=== PATIENT | female | born 1965 | race Caucasian/White ===

== ENCOUNTER 2017-11-27 14:56 | Emergency (ER) | payer MEDICAID ==
[~2017-11-27] VITALS: Ht 157.5 cm; Wt 99.0 kg
[~2017-11-27 14:56] MED LIST: ATEN25TA PO; LOSA1TAB36 PO; SIMV20TA5 PO
[2017-11-27 15:55] LABS: BASOPHILS % (AUTO) 0.4 % (0-1); EOSINOPHILS # (AUTO) 0.1 X10'3 (0-0.9); EOSINOPHILS % (AUTO) 1.5 % (0-6); HEMATOCRIT 40.1 % (35.0-45.0); HEMOGLOBIN 14.3 g/dl (12.0-16.0); LYMPHOCYTES % (AUTO) 15.7 % (21-51); MEAN CORPUSCULAR HEMOGLOBIN 35.5 PG (27.0-31.0); MEAN CORPUSCULAR HGB CONC 35.6 % (33.0-36.5); MEAN CORPUSCULAR VOLUME 99.8 FL (78-98); MEAN PLATELET VOLUME 8.9 FL (7.4-10.4); MONOCYTES # (AUTO) 0.3 X10'3 (0-0.9); MONOCYTES % (AUTO) 5.4 % (2-12); NEUTROPHILS # (AUTO) 4.8 X10'3 (1.8-7.7); PLATELET COUNT 128 X10'3 (140-440); RED BLOOD COUNT 4.02 X10'6 (4.20-5.60); RED CELL DISTRIBUTION WIDTH 13.8 % (11.5-14.5); WHITE BLOOD COUNT 6.3 X10'3 (4.5-11.0)
[2017-11-27 16:06] LABS: INR 1.1 INR; PARTIAL THROMBOPLASTIN TIME 28 SECONDS (22-32); PROTHROMBIN TIME 11.8 SECONDS (9.0-12.0)
[2017-11-27 16:16] LABS: ALANINE AMINOTRANSFERASE 213 U/L (12-78); ALBUMIN 3.4 G/DL (3.4-5.0); ALBUMIN/GLOBULIN RATIO 0.8 (1.1-1.5); ANION GAP 10 (8-16); ASPARTATE AMINO TRANSFERASE 141 U/L (10-37); BILIRUBIN,TOTAL 0.5 MG/DL (0.1-1.0); BLOOD UREA NITROGEN 15 MG/DL (7-18); BUN/CREATININE RATIO 21.7 (6.6-38.0); CALCIUM 9.2 MG/DL (8.5-10.1); CHLORIDE 105 MMOL/L (99-107); CREATININE 0.69 MG/DL (0.40-0.90); GLUCOSE 127 MG/DL (70-104); POTASSIUM 3.9 MMOL/L (3.5-5.1); SODIUM 142 MMOL/L (135-145); TOTAL CARBON DIOXIDE 27.2 MMOL/L (24-32); TOTAL PROTEIN 7.7 G/DL (6.4-8.2); eGFR 90 ML/MIN
[2017-11-27 17:08] LABS: ALKALINE PHOSPHATASE 127 IU/L (46-116)
[2017-11-27 19:56] VITALS: BP 143/78
== END 2017-11-27 20:03 | disposition home or self-care (01) ==
LOC: ER 14:56
DX: R60.0 Localized edema (principal); R11.0 Nausea; K21.9 Gastro-esophageal reflux disease without esophagitis; E78.00 Pure hypercholesterolemia, unspecified; I10 Essential (primary) hypertension; Z87.891 Personal history of nicotine dependence; Z79.899 Other long term (current) drug therapy
CPT/HCPCS: 36415; 71045; 80053; 83605; 83880; 84484; 85025; 85610; 85730; 87040; 93005; 93971; 99285

== ENCOUNTER 2021-05-24 08:43 | Day surgery (SDC) | payer MEDICAID ==
[2021-05-16 15:40] LABS: BASOPHILS % (AUTO) 0.5 % (0-1); EOSINOPHILS # (AUTO) 0.1 X10'3 (0-0.9); EOSINOPHILS % (AUTO) 1.4 % (0-6); LYMPHOCYTES # (AUTO) 0.8 X10'3 (1.1-4.8); LYMPHOCYTES % (AUTO) 22.3 % (21-51); MEAN CORPUSCULAR HEMOGLOBIN 34.1 PG (27.0-31.0); MEAN CORPUSCULAR HGB CONC 33.9 g/dL (33.0-36.5); MEAN CORPUSCULAR VOLUME 100.6 FL (78-98); MEAN PLATELET VOLUME 9.6 FL (7.4-10.4); MONOCYTES # (AUTO) 0.4 X10'3 (0-0.9); NEUTROPHILS # (AUTO) 2.4 X10'3 (1.8-7.7); NEUTROPHILS % (AUTO) 63.8 % (42-75); PRE OP HEMATOCRIT 43.4 % (35.0-45.0); PRE OP HEMOGLOBIN 14.7 g/dL (12.0-16.0); RED BLOOD COUNT 4.31 X10'6 (4.20-5.60); RED CELL DISTRIBUTION WIDTH 15.4 % (11.5-14.5)
[2021-05-16 15:48] LABS: ALBUMIN 3.2 G/DL (3.4-5.0); ALBUMIN/GLOBULIN RATIO 0.7 (1.1-1.5); ALKALINE PHOSPHATASE 173 IU/L (46-116); BLOOD UREA NITROGEN 5 MG/DL (7-18); BUN/CREATININE RATIO 6.8 (6.6-38.0); CALCIUM 8.9 MG/DL (8.5-10.1); CHLORIDE 107 MMOL/L (99-107); CREATININE 0.73 MG/DL (0.40-0.90); PRE OP ALT 48 U/L (30-65); PRE OP ANION GAP 6 (8-16); PRE OP AST 50 U/L (10-37); PRE OP BILIRUB, TOTAL 0.8 MG/DL (0.0-1.0); PRE OP GLUCOSE 99 MG/DL (70-104); PRE OP POTASSIUM 3.7 MMOL/L (3.4-5.1); PRE OP SODIUM 142 MMOL/L (135-145); TOTAL CARBON DIOXIDE 28.6 MMOL/L (24-32); TOTAL PROTEIN 7.7 G/DL (6.4-8.2); eGFR 83 ML/MIN
[2021-05-16 16:03] LABS: PRE OP PLATELET COUNT 77 X10'3 (140-440)
[~2021-05-24] VITALS: Ht 160 cm; Wt 79.4 kg
[~2021-05-24 08:43] MED LIST changes: -ATEN25TA PO; +BUDE10.27 PO; +DOCUMENT DATE & TIME OF BETA-BLOCKER PO ONE; +ENAL-79 PO; +FLUT16SP26; +HYDR12.55 PO; -LOSA1TAB36 PO; +METO-384 PO; +MONT10TA32 PO; +OMEP-50 PO; -SIMV20TA5 PO; +[UNRECOGNIZED DRUG - MIXTURE] PO; +cefazolin/dext.iso 2gm/100ml IV ONE; +famotidine 20mg tablet PO ONE; +meperidine/PF 25mg/ml syringe IV PRN; +morphine 2 MG/ML inj. syringe IV PRN; +morphine 4 MG/ML inj SYRINge IV PRN; +ondansetron/PF 4mg/2ml inj IV PRN; +proCHLORperazine 10 MG/2 ml inj IV PRN; +ringers solution, lacted 1,000 ML IV SCH; +vancomycin 1,500 MG in NS 300ml IV soln IV ONE
[2021-05-24 09:10] VITALS: BP 126/76
[2021-05-24] MEDS ORDERED: LIDOcaine 1% 30ml preserv. free vial ONE (09:29)
[2021-05-24] MEDS ORDERED: fentaNYL/PF 50MCG/1 ML 2ML syringe ONE (10:15)
[2021-05-24] MEDS ORDERED: MIDAZolam 1 MG/ML 5ML VIAL ONE (10:15)
[2021-05-24] MEDS ORDERED: ketorolac trometh. 30mg/ml inj. ONE (10:16)
[2021-05-24] MEDS ORDERED: BUPIVAcaine/PF 2.5mg/ml (0.25%) 10ml vial ONE (10:27)
[2021-05-24] MEDS ORDERED: methylPREDNISolone sod succ 125mg/2ml vial ONE (10:27)
[2021-05-24] MEDS ORDERED: diphenhydrAMINE 50 mg/ml inj ONE (10:58)
[2021-05-24 11:23] VITALS: BP 149/96
--- NOTE | 2021-05-24 11:23 | NUR ---
Received from OR via [facility] IN STABLE CONDITION , accompanied by Anesthesiologist and [employer]NER report given by CASINO FLOOR RUNNER AND Anesthesiolgist. Addendum: 05/24/21 at 1208 by Marianne Padilla RN Amended: Links added.
[2021-05-24 11:30] VITALS: BP 149/96
[2021-05-24 11:40] VITALS: BP 148/77
[2021-05-24 11:50] VITALS: BP 141/63
[2021-05-24 12:00] VITALS: BP 137/68
--- NOTE | 2021-05-24 12:13 | NUR ---
PATIENT DISCHARGED HOME FROM PACU IN STABLE CONDITION AFTER WRITTEN AND VERBAL DISCHARGE INSRUCTIONS GIVEN. PATIENT GAVE VERBAL UNDERSTANDING OF INSTRUCTIONS GIVEN. PATIENT LEFT FACILITY IN WHEELCHAIR WITH RN. Addendum: 05/24/21 at 1320 by Marianne Padilla RN Amended: Links added.
== END 2021-05-24 12:13 | disposition home or self-care (01) ==
LOC: PAS 08:43
PROVIDERS: ATTEND Orthopaedic Surgery
DX: G56.01 Carpal tunnel syndrome, right upper limb (principal); G56.21 Lesion of ulnar nerve, right upper limb; I10 Essential (primary) hypertension; K21.9 Gastro-esophageal reflux disease without esophagitis; G43.909 Migraine, unspecified, not intractable, without status migrainosus; J44.9 Chronic obstructive pulmonary disease, unspecified; E11.9 Type 2 diabetes mellitus without complications; E66.8 Other obesity; Z68.31 Body mass index [BMI] 31.0-31.9, adult; Z72.89 Other problems related to lifestyle; Z20.822 Contact with and (suspected) exposure to COVID-19; Z79.899 Other long term (current) drug therapy; Z88.1 Allergy status to other antibiotic agents; Z87.891 Personal history of nicotine dependence; Z98.890 Other specified postprocedural states
CPT/HCPCS: 36415; 64719; 64721; 80053; 82948; 85025; 93005; J1200; J1885; J2001; J2250; J2930; J3010; J3370; J3490; J7040; U0003; U0005; Z7506; Z7512; A4215; A4565; A6455; A7000; J7120

== ENCOUNTER 2021-09-06 12:00 | Outpatient (CLI) | payer MEDICAID ==
[2021-08-29 12:11] LABS: BASOPHILS % (AUTO) 0.7 % (0-1); EOSINOPHILS % (AUTO) 1.1 % (0-6); LYMPHOCYTES # (AUTO) 0.5 X10'3 (1.1-4.8); LYMPHOCYTES % (AUTO) 16.2 % (21-51); MEAN CORPUSCULAR HEMOGLOBIN 33.7 PG (27.0-31.0); MEAN CORPUSCULAR HGB CONC 34.2 g/dL (33.0-36.5); MEAN CORPUSCULAR VOLUME 98.6 FL (78-98); MEAN PLATELET VOLUME 9.2 FL (7.4-10.4); MONOCYTES # (AUTO) 0.3 X10'3 (0-0.9); MONOCYTES % (AUTO) 9.4 % (2-12); NEUTROPHILS # (AUTO) 2.2 X10'3 (1.8-7.7); NEUTROPHILS % (AUTO) 72.6 % (42-75); PRE OP HEMATOCRIT 42.4 % (35.0-45.0); PRE OP HEMOGLOBIN 14.5 g/dL (12.0-16.0); RED CELL DISTRIBUTION WIDTH 15.4 % (11.5-14.5)
[2021-08-29 12:22] LABS: PRE OP PLATELET COUNT 55 X10'3 (140-440)
[2021-08-29 12:27] LABS: ALBUMIN 3.2 G/DL (3.4-5.0); ALBUMIN/GLOBULIN RATIO 0.7 (1.1-1.5); ALKALINE PHOSPHATASE 192 IU/L (46-116); BLOOD UREA NITROGEN 12 MG/DL (7-18); CHLORIDE 102 MMOL/L (99-107); CREATININE 0.63 MG/DL (0.40-0.90); PRE OP ALT 52 U/L (30-65); PRE OP ANION GAP 9 (8-16); PRE OP AST 74 U/L (10-37); PRE OP GLUCOSE 123 MG/DL (70-104); PRE OP SODIUM 138 MMOL/L (135-145); TOTAL PROTEIN 7.7 G/DL (6.4-8.2); eGFR > 90 ML/MIN
[2021-08-29 12:32] LABS: PRE OP BILIRUB, TOTAL 3.5 MG/DL (0.0-1.0); PRE OP POTASSIUM 3.2 MMOL/L (3.4-5.1)
[2021-08-29 13:40] LABS: PLATELET ESTIMATE DECREASED; TOTAL CELLS COUNTED 100
[~2021-09-06 12:00] MED LIST changes: -DOCUMENT DATE & TIME OF BETA-BLOCKER PO ONE; +MONT-40 PO; -MONT10TA32 PO; -cefazolin/dext.iso 2gm/100ml IV ONE; -famotidine 20mg tablet PO ONE; -meperidine/PF 25mg/ml syringe IV PRN; -morphine 2 MG/ML inj. syringe IV PRN; -morphine 4 MG/ML inj SYRINge IV PRN; -ondansetron/PF 4mg/2ml inj IV PRN; -proCHLORperazine 10 MG/2 ml inj IV PRN; -ringers solution, lacted 1,000 ML IV SCH; -vancomycin 1,500 MG in NS 300ml IV soln IV ONE
== END 2021-09-06 23:59 | disposition home or self-care (01) ==
LOC: LAB 12:00
PROVIDERS: ATTEND Orthopaedic Surgery
DX: Z01.812 Encounter for preprocedural laboratory examination (principal); J45.909 Unspecified asthma, uncomplicated; K21.9 Gastro-esophageal reflux disease without esophagitis; I10 Essential (primary) hypertension; E66.8 Other obesity; G56.03 Carpal tunnel syndrome, bilateral upper limbs; Z20.822 Contact with and (suspected) exposure to COVID-19
CPT/HCPCS: 36415; 80053; 85007; 85025; U0003; U0005

== ENCOUNTER 2023-02-07 06:37 | Day surgery (SDC) | payer MEDICAID ==
[2023-02-07] VITALS (10 sets, daily range): BP systolic 111–146; BP diastolic 43–88
[~2023-02-07] VITALS: Ht 160 cm; Wt 89.4 kg
[~2023-02-07 06:37] MED LIST changes: -OMEP-50 PO; +OMEP20CA16 PO
[2023-02-07] MEDS ORDERED: LIDOcaine 1%/PF 5ML 10 MG/ML VIAL SQ ONE (07:05)
[2023-02-07] MEDS ORDERED: SPIR25TA5 PO (07:17)
[2023-02-07] MEDS ORDERED: BUDE10.22 INH (07:17)
[2023-02-07] MEDS ORDERED: SERT50TA PO (07:17)
[2023-02-07] MEDS ORDERED: MUPI22OI30 TOP (07:17)
[2023-02-07] MEDS ORDERED: clindamycin PO (07:17)
[2023-02-07] MEDS: albumin 25% 100mL bottle x 1 IV PRN ×2 (08:22→09:17)
== END 2023-02-07 10:45 | disposition home or self-care (01) ==
LOC: SSTAY O 06:37
PROVIDERS: ATTEND Radiology Vascular & Interventional Radiology
DX: K70.31 Alcoholic cirrhosis of liver with ascites (principal); I10 Essential (primary) hypertension; E11.9 Type 2 diabetes mellitus without complications; E78.5 Hyperlipidemia, unspecified; Z87.891 Personal history of nicotine dependence; Z88.1 Allergy status to other antibiotic agents; F10.21 Alcohol dependence, in remission; Z79.899 Other long term (current) drug therapy; Z86.14 Personal history of Methicillin resistant Staphylococcus aureus infection
CPT/HCPCS: 49083; C1729; J3490; P9047; A6258; A6449

== ENCOUNTER 2023-02-24 07:13 | Day surgery (SDC) | payer MEDICAID ==
[~2023-02-24] VITALS: Ht 160 cm; Wt 78.6 kg
[2023-02-24] VITALS (8 sets, daily range): BP systolic 108–121; BP diastolic 62–78
[~2023-02-24 07:13] MED LIST changes: +BUDE10.22 INH; -BUDE10.27 PO; -ENAL-79 PO; -METO-384 PO; -MONT-40 PO; +MUPI22OI30 TOP; +SERT50TA PO; +SPIR25TA5 PO; -[UNRECOGNIZED DRUG - MIXTURE] PO
[2023-02-24] MEDS: albumin 25% 100mL bottle x 1 IV PRN ×2 (08:57→09:34)
== END 2023-02-24 10:15 | disposition home or self-care (01) ==
LOC: SSTAY O 07:13
PROVIDERS: ATTEND Radiology Vascular & Interventional Radiology
DX: K70.31 Alcoholic cirrhosis of liver with ascites (principal); I10 Essential (primary) hypertension; E78.5 Hyperlipidemia, unspecified; E11.9 Type 2 diabetes mellitus without complications; Z86.14 Personal history of Methicillin resistant Staphylococcus aureus infection; F10.91 Alcohol use, unspecified, in remission; Z87.891 Personal history of nicotine dependence; Z88.1 Allergy status to other antibiotic agents; Z79.899 Other long term (current) drug therapy
CPT/HCPCS: 49083; C1729; J3490; P9047; A6258; A6449

== ENCOUNTER 2023-03-04 07:36 | Day surgery (SDC) | payer MEDICAID ==
[~2023-03-04] VITALS: Ht 160 cm; Wt 76.3 kg
[2023-03-04] MEDS ORDERED: ketoconazole cream (07:53)
[2023-03-04 08:52] VITALS: BP 97/60
[2023-03-04 09:07] VITALS: BP 127/85
[2023-03-04] MEDS: albumin 25% 100mL bottle x 1 IV PRN ×2 (09:14→09:22)
[2023-03-04 09:22] VITALS: BP 123/68
[2023-03-04 09:37] VITALS: BP 108/59
[2023-03-04 09:52] VITALS: BP 115/66
[2023-03-04 10:07] VITALS: BP 105/63
== END 2023-03-04 11:35 | disposition home or self-care (01) ==
LOC: SSTAY O 07:36
PROVIDERS: ATTEND Radiology Vascular & Interventional Radiology
DX: K70.31 Alcoholic cirrhosis of liver with ascites (principal); I10 Essential (primary) hypertension; E78.5 Hyperlipidemia, unspecified; E11.9 Type 2 diabetes mellitus without complications; Z86.14 Personal history of Methicillin resistant Staphylococcus aureus infection; Z87.891 Personal history of nicotine dependence; F10.91 Alcohol use, unspecified, in remission; Z88.1 Allergy status to other antibiotic agents; Z79.899 Other long term (current) drug therapy
CPT/HCPCS: 49083; C1729; J3490; P9047; A6258; A6449

== ENCOUNTER 2023-03-20 07:09 | Day surgery (SDC) | payer MEDICAID ==
[~2023-03-20] VITALS: Ht 160 cm; Wt 75.9 kg
[~2023-03-20 07:09] MED LIST changes: -MUPI22OI30 TOP; -SERT50TA PO
[2023-03-20 07:22] VITALS: BP 122/79; PULSE 97; TEMP 98.8; O2SAT 99
[2023-03-20] MEDS ORDERED: albumin 25% 100mL bottle x 1 IV PRN (07:25)
[2023-03-20 08:45] VITALS: BP 119/59; PULSE 77; RESP 16; O2SAT 98
[2023-03-20 09:00] VITALS: BP 123/80; PULSE 87; RESP 12; O2SAT 98
[2023-03-20 09:15] VITALS: BP 102/64; PULSE 77; RESP 12; O2SAT 98
[2023-03-20 09:30] VITALS: BP 98/48; PULSE 79; RESP 14; O2SAT 98
[2023-03-20 09:45] VITALS: BP 109/41; PULSE 87; RESP 12; O2SAT 97
== END 2023-03-20 09:50 | disposition home or self-care (01) ==
LOC: SSTAY O 07:09
PROVIDERS: ATTEND Radiology Vascular & Interventional Radiology
DX: K70.31 Alcoholic cirrhosis of liver with ascites (principal); I10 Essential (primary) hypertension; E78.5 Hyperlipidemia, unspecified; E11.9 Type 2 diabetes mellitus without complications; Z86.14 Personal history of Methicillin resistant Staphylococcus aureus infection; F10.91 Alcohol use, unspecified, in remission; F17.210 Nicotine dependence, cigarettes, uncomplicated; Z88.1 Allergy status to other antibiotic agents; Z79.899 Other long term (current) drug therapy
CPT/HCPCS: 49083; C1729; J3490; P9047; A6258

== ENCOUNTER 2023-03-27 07:45 | Day surgery (SDC) | payer MEDICAID ==
[~2023-03-27] VITALS: Ht 160 cm; Wt 76.6 kg
[2023-03-27] MEDS ORDERED: albumin 25% 100mL bottle x 1 IV PRN (08:05)
[2023-03-27 08:10] VITALS: BP 127/91; PULSE 99; RESP 16; TEMP 98.2; O2SAT 98
[2023-03-27 09:10] VITALS: BP 142/91; PULSE 93; RESP 16; O2SAT 100
[2023-03-27] MEDS ORDERED: SULF1TAB49 PO (09:17)
[2023-03-27 09:25] VITALS: BP 118/78; PULSE 86; RESP 15; O2SAT 100
[2023-03-27 09:35] VITALS: BP 130/78; PULSE 91; RESP 14; O2SAT 100
[2023-03-27 09:50] VITALS: BP 131/51; PULSE 86; RESP 16; O2SAT 99
== END 2023-03-27 10:10 | disposition home or self-care (01) ==
LOC: SSTAY O 07:45
PROVIDERS: ATTEND Radiology Vascular & Interventional Radiology
DX: K70.31 Alcoholic cirrhosis of liver with ascites (principal); I10 Essential (primary) hypertension; E78.5 Hyperlipidemia, unspecified; E11.9 Type 2 diabetes mellitus without complications; F10.21 Alcohol dependence, in remission; Z88.1 Allergy status to other antibiotic agents; Z98.890 Other specified postprocedural states; Z86.14 Personal history of Methicillin resistant Staphylococcus aureus infection; Z79.899 Other long term (current) drug therapy
CPT/HCPCS: 49083; C1729; J3490; A6258; A6449

== ENCOUNTER 2023-04-03 07:09 | Day surgery (SDC) | payer MEDICAID ==
[~2023-04-03] VITALS: Ht 160 cm; Wt 85.9 kg
[2023-04-03] VITALS (7 sets, daily range): BP systolic 119–141; BP diastolic 78–94; PULSE 95–99; RESP 14–16; TEMP 98.6; O2SAT 99
[~2023-04-03 07:09] MED LIST changes: +SULF1TAB49 PO
[2023-04-03] MEDS ORDERED: LIDOcaine 1% 30ml preserv. free vial SQ STA (07:24)
[2023-04-03] MEDS ORDERED: albumin 25% 100mL bottle x 1 IV PRN (07:45)
== END 2023-04-03 11:00 | disposition home or self-care (01) ==
LOC: SSTAY O 07:09
PROVIDERS: ATTEND Radiology Diagnostic Radiology
DX: K70.31 Alcoholic cirrhosis of liver with ascites (principal); I10 Essential (primary) hypertension; E78.5 Hyperlipidemia, unspecified; E11.9 Type 2 diabetes mellitus without complications; F10.91 Alcohol use, unspecified, in remission; Z87.891 Personal history of nicotine dependence; Z86.14 Personal history of Methicillin resistant Staphylococcus aureus infection; Z79.899 Other long term (current) drug therapy
CPT/HCPCS: 49083; C1729; J3490; A6258; A6449

== ENCOUNTER 2023-04-17 06:32 | Day surgery (SDC) | payer MEDICAID ==
[~2023-04-17] VITALS: Ht 160 cm; Wt 86.3 kg
[2023-04-17] VITALS (7 sets, daily range): BP systolic 107–156; BP diastolic 61–115; PULSE 79–96; RESP 14–16; TEMP 99.3; O2SAT 94–100
[~2023-04-17 06:32] MED LIST changes: +BACI1PAC7 TP; -BUDE10.22 INH; -SULF1TAB49 PO
[2023-04-17] MEDS: albumin 25% 100mL bottle x 1 IV PRN ×2 (07:56→08:59)
== END 2023-04-17 10:00 | disposition home or self-care (01) ==
LOC: SSTAY O 06:32
PROVIDERS: ATTEND Radiology Vascular & Interventional Radiology
DX: K70.31 Alcoholic cirrhosis of liver with ascites (principal); E11.9 Type 2 diabetes mellitus without complications; E78.5 Hyperlipidemia, unspecified; I10 Essential (primary) hypertension; Z86.14 Personal history of Methicillin resistant Staphylococcus aureus infection; F10.21 Alcohol dependence, in remission; Z98.890 Other specified postprocedural states; Z87.891 Personal history of nicotine dependence; Z88.1 Allergy status to other antibiotic agents; Z79.899 Other long term (current) drug therapy
CPT/HCPCS: 49083; C1729; J3490; P9047; A6258

== ENCOUNTER 2023-04-24 06:21 | Day surgery (SDC) | payer MEDICAID ==
[2023-04-24] VITALS (11 sets, daily range): BP systolic 100–121; BP diastolic 60–93; PULSE 80–103; RESP 16; TEMP 98.2; O2SAT 95–100
[~2023-04-24] VITALS: Ht 160 cm; Wt 83.7 kg
[~2023-04-24 06:21] MED LIST changes: -BACI1PAC7 TP
[2023-04-24] MEDS: albumin 25% 100mL bottle x 1 IV PRN ×2 (08:38→08:40)
== END 2023-04-24 10:40 | disposition home or self-care (01) ==
LOC: SSTAY O 06:21
PROVIDERS: ATTEND Radiology Diagnostic Radiology
DX: K70.31 Alcoholic cirrhosis of liver with ascites (principal); I10 Essential (primary) hypertension; E78.5 Hyperlipidemia, unspecified; E11.9 Type 2 diabetes mellitus without complications; F10.21 Alcohol dependence, in remission; Z86.14 Personal history of Methicillin resistant Staphylococcus aureus infection; Z87.891 Personal history of nicotine dependence; Z98.890 Other specified postprocedural states; Z79.899 Other long term (current) drug therapy; Z88.1 Allergy status to other antibiotic agents
CPT/HCPCS: 49083; C1729; J3490; P9047; A6258

== ENCOUNTER 2023-05-01 06:34 | Day surgery (SDC) | payer MEDICAID ==
[~2023-05-01] VITALS: Ht 160 cm; Wt 79.7 kg
[2023-05-01] VITALS (8 sets, daily range): BP systolic 96–121; BP diastolic 56–74; PULSE 81–90; RESP 14–17; O2SAT 95–99
[2023-05-01] MEDS: albumin 25% 100mL bottle x 1 IV PRN ×2 (09:17→09:58)
== END 2023-05-01 10:45 | disposition home or self-care (01) ==
LOC: SSTAY O 06:34
PROVIDERS: ATTEND Radiology Vascular & Interventional Radiology
DX: K70.31 Alcoholic cirrhosis of liver with ascites (principal); I10 Essential (primary) hypertension; E78.5 Hyperlipidemia, unspecified; E11.9 Type 2 diabetes mellitus without complications; Z86.14 Personal history of Methicillin resistant Staphylococcus aureus infection; F10.21 Alcohol dependence, in remission; Z87.891 Personal history of nicotine dependence; Z88.1 Allergy status to other antibiotic agents; Z79.899 Other long term (current) drug therapy
CPT/HCPCS: 49083; C1729; J3490; P9047; A6258; A6449

== ENCOUNTER 2023-05-08 06:45 | Day surgery (SDC) | payer MEDICAID ==
[~2023-05-08] VITALS: Ht 160 cm; Wt 77.5 kg
[2023-05-08 07:01] VITALS: BP 104/65; PULSE 89; RESP 14; TEMP 98.4; O2SAT 100
[2023-05-08] MEDS ORDERED: normal saline 1000ml 1,000 ML IV PRN (07:05)
[2023-05-08] MEDS ORDERED: albumin 25% 100mL bottle x 1 IV PRN (07:05)
[2023-05-08 08:08] VITALS: RESP 14; O2SAT 96
[2023-05-08 08:23] VITALS: BP 113/65; PULSE 83; RESP 16; O2SAT 96
[2023-05-08 08:38] VITALS: BP 105/63; PULSE 79; RESP 16; O2SAT 96
[2023-05-08 08:53] VITALS: BP 104/64; PULSE 76; RESP 16; O2SAT 96
[2023-05-08 09:05] VITALS: BP 110/66; PULSE 78; RESP 16; O2SAT 96
== END 2023-05-08 09:05 | disposition home or self-care (01) ==
LOC: SSTAY O 06:45
PROVIDERS: ATTEND Radiology Vascular & Interventional Radiology
DX: K70.31 Alcoholic cirrhosis of liver with ascites (principal); I10 Essential (primary) hypertension; E11.9 Type 2 diabetes mellitus without complications; E78.5 Hyperlipidemia, unspecified; Z86.14 Personal history of Methicillin resistant Staphylococcus aureus infection; F10.21 Alcohol dependence, in remission; Z87.891 Personal history of nicotine dependence; Z98.890 Other specified postprocedural states; Z79.899 Other long term (current) drug therapy; Z88.1 Allergy status to other antibiotic agents
CPT/HCPCS: 49083; C1729; J3490; P9047; A6258

== ENCOUNTER 2023-05-13 07:15 | Day surgery (SDC) | payer MEDICAID ==
[2023-05-13] VITALS (7 sets, daily range): BP systolic 115–147; BP diastolic 63–93; PULSE 81–100; RESP 15–17; TEMP 98.8; O2SAT 94–99
[~2023-05-13] VITALS: Ht 157.5 cm; Wt 75.7 kg
[2023-05-13] MEDS ORDERED: BUDE10.2 INH (07:30)
[2023-05-13] MEDS ORDERED: VITA400T10 PO (07:38)
[2023-05-13] MEDS ORDERED: MILK1CAP4 PO (07:38)
[2023-05-13] MEDS ORDERED: ASCO-157 PO (07:38)
[2023-05-13] MEDS ORDERED: VITA0.4T18 PO (07:38)
[2023-05-13] MEDS ORDERED: OMEG-5 PO (07:38)
[2023-05-13] MEDS ORDERED: [UNRECOGNIZED DRUG - CODE] PO (07:38)
[2023-05-13] MEDS ORDERED: normal saline 1000ml 1,000 ML IV PRN (07:40)
[2023-05-13] MEDS ORDERED: albumin 25% 100mL bottle x 1 IV PRN (07:40)
== END 2023-05-13 11:10 | disposition home or self-care (01) ==
LOC: SSTAY O 07:15
PROVIDERS: ATTEND Radiology Diagnostic Radiology
DX: K70.31 Alcoholic cirrhosis of liver with ascites (principal); I10 Essential (primary) hypertension; E78.5 Hyperlipidemia, unspecified; E11.9 Type 2 diabetes mellitus without complications; F10.21 Alcohol dependence, in remission; Z87.891 Personal history of nicotine dependence; Z98.890 Other specified postprocedural states; Z88.1 Allergy status to other antibiotic agents; Z79.899 Other long term (current) drug therapy
CPT/HCPCS: 49083; C1729; J3490; A6258; A6449

== ENCOUNTER 2023-05-29 06:19 | Day surgery (SDC) | payer MEDICAID ==
[~2023-05-29] VITALS: Ht 160 cm; Wt 80.4 kg
[2023-05-29] VITALS (12 sets, daily range): BP systolic 100–142; BP diastolic 57–82; PULSE 82–96; RESP 16; TEMP 98.9; O2SAT 96–100
[~2023-05-29 06:19] MED LIST changes: +ASCO-157 PO; +BUDE10.2 INH; +MILK1CAP4 PO; +OMEG-5 PO; +VITA0.4T18 PO; +VITA400T10 PO; +[UNRECOGNIZED DRUG - CODE] PO
[2023-05-29] MEDS: albumin 25% 100mL bottle x 1 IV PRN ×2 (08:52→09:19)
== END 2023-05-29 10:45 | disposition home or self-care (01) ==
LOC: SSTAY O 06:19
PROVIDERS: ATTEND Radiology Vascular & Interventional Radiology
DX: K70.31 Alcoholic cirrhosis of liver with ascites (principal); I10 Essential (primary) hypertension; E78.5 Hyperlipidemia, unspecified; E11.9 Type 2 diabetes mellitus without complications; F10.21 Alcohol dependence, in remission; Z86.14 Personal history of Methicillin resistant Staphylococcus aureus infection; Z87.891 Personal history of nicotine dependence; Z88.1 Allergy status to other antibiotic agents; Z79.899 Other long term (current) drug therapy
CPT/HCPCS: 49083; A6258; C1729; J3490; P9047

== ENCOUNTER 2023-06-05 08:14 | Day surgery (SDC) | payer MEDICAID ==
[2023-06-05] VITALS (8 sets, daily range): BP systolic 97–128; BP diastolic 59–91; PULSE 77–105; RESP 12–16; TEMP 99.2; O2SAT 97–100
[~2023-06-05] VITALS: Ht 160 cm; Wt 78.6 kg
[2023-06-05] MEDS: albumin 25% 100mL bottle x 1 IV PRN ×2 (10:39→11:00)
== END 2023-06-05 12:05 | disposition home or self-care (01) ==
LOC: SSTAY O 08:14
PROVIDERS: ATTEND Radiology Diagnostic Radiology
DX: R18.8 Other ascites (principal); Z79.899 Other long term (current) drug therapy; Z88.1 Allergy status to other antibiotic agents
CPT/HCPCS: 49083; C1729; J3490; P9047; 96360; A6258

== ENCOUNTER 2023-06-12 07:30 | Day surgery (SDC) | payer MEDICAID ==
[2023-06-12] VITALS (7 sets, daily range): BP systolic 103–120; BP diastolic 57–80; PULSE 84–91; RESP 16–20; TEMP 98.3; O2SAT 98–99
[~2023-06-12] VITALS: Ht 160 cm; Wt 76.7 kg
[2023-06-12] MEDS ORDERED: LIDOcaine 1%/PF 5ML 10 MG/ML VIAL SQ ONE (08:15)
[2023-06-12] MEDS: albumin 25% 100mL bottle x 1 IV PRN ×2 (08:27→09:44)
== END 2023-06-12 10:45 | disposition home or self-care (01) ==
LOC: SSTAY O 07:30
PROVIDERS: ATTEND Radiology Vascular & Interventional Radiology
DX: R18.8 Other ascites (principal); R14.0 Abdominal distension (gaseous); I10 Essential (primary) hypertension; E78.5 Hyperlipidemia, unspecified; Z87.891 Personal history of nicotine dependence
CPT/HCPCS: 49083; C1729; P9047; A6258; J3490

== ENCOUNTER 2023-06-20 07:20 | Day surgery (SDC) | payer MEDICAID ==
[~2023-06-20] VITALS: Ht 160 cm; Wt 75.8 kg
[2023-06-20] VITALS (7 sets, daily range): BP systolic 108–130; BP diastolic 61–90; PULSE 81–96; RESP 16–18; TEMP 98.4; O2SAT 97–98
[~2023-06-20 07:20] MED LIST changes: +LIDOcaine 1%/PF 5ML 10 MG/ML VIAL ONE
[2023-06-20] MEDS ORDERED: albumin 25% 100mL bottle x 1 IV PRN (08:15)
== END 2023-06-20 10:20 | disposition home or self-care (01) ==
LOC: SSTAY O 07:20
PROVIDERS: ATTEND Radiology Vascular & Interventional Radiology
DX: K70.31 Alcoholic cirrhosis of liver with ascites (principal); I10 Essential (primary) hypertension; E78.5 Hyperlipidemia, unspecified; E11.9 Type 2 diabetes mellitus without complications; Z79.899 Other long term (current) drug therapy; Z98.890 Other specified postprocedural states
CPT/HCPCS: 49083; C1729; P9047; A6258; A6449

== ENCOUNTER 2023-06-26 07:19 | Day surgery (SDC) | payer MEDICAID ==
[~2023-06-26] VITALS: Ht 160 cm; Wt 75.3 kg
[2023-06-26] VITALS (8 sets, daily range): BP systolic 106–130; BP diastolic 52–78; PULSE 73–96; RESP 16–20; TEMP 98.5; O2SAT 97–99
[~2023-06-26 07:19] MED LIST changes: -LIDOcaine 1%/PF 5ML 10 MG/ML VIAL ONE
[2023-06-26] MEDS: albumin 25% 100mL bottle x 1 IV PRN ×2 (08:29→09:43)
== END 2023-06-26 10:35 | disposition home or self-care (01) ==
LOC: SSTAY O 07:19
PROVIDERS: ATTEND Radiology Vascular & Interventional Radiology
DX: K70.31 Alcoholic cirrhosis of liver with ascites (principal); I10 Essential (primary) hypertension; E78.5 Hyperlipidemia, unspecified; E11.9 Type 2 diabetes mellitus without complications; F10.21 Alcohol dependence, in remission; Z86.14 Personal history of Methicillin resistant Staphylococcus aureus infection; Z87.891 Personal history of nicotine dependence; Z88.1 Allergy status to other antibiotic agents; Z79.899 Other long term (current) drug therapy
CPT/HCPCS: 49083; C1729; P9047; A6258; A6449

== ENCOUNTER 2023-07-03 07:16 | Day surgery (SDC) | payer MEDICAID ==
[~2023-07-03] VITALS: Ht 160 cm; Wt 75.6 kg
[2023-07-03] MEDS ORDERED: albumin 25% 100mL bottle x 1 IV PRN (07:40)
[2023-07-03 07:45] VITALS: BP 121/69; PULSE 99; RESP 16; TEMP 98.7; O2SAT 98
[2023-07-03 09:45] VITALS: BP 131/91; PULSE 89; RESP 16; O2SAT 95
[2023-07-03 10:00] VITALS: BP 119/69; PULSE 92; RESP 15; O2SAT 99
[2023-07-03 10:10] VITALS: BP 97/54; PULSE 81; RESP 16; O2SAT 97
[2023-07-03 10:25] VITALS: BP 128/55; PULSE 81; RESP 16; O2SAT 97
== END 2023-07-03 10:35 | disposition home or self-care (01) ==
LOC: SSTAY O 07:16
PROVIDERS: ATTEND Radiology Vascular & Interventional Radiology
DX: K70.31 Alcoholic cirrhosis of liver with ascites (principal); I10 Essential (primary) hypertension; E78.5 Hyperlipidemia, unspecified; E11.9 Type 2 diabetes mellitus without complications; Z86.14 Personal history of Methicillin resistant Staphylococcus aureus infection; Z98.890 Other specified postprocedural states; F10.21 Alcohol dependence, in remission; Z87.891 Personal history of nicotine dependence; Z88.1 Allergy status to other antibiotic agents; Z79.899 Other long term (current) drug therapy
CPT/HCPCS: 49083; C1729; P9047; A6258; A6449

== ENCOUNTER 2023-07-10 06:54 | Day surgery (SDC) | payer MEDICAID ==
[~2023-07-10] VITALS: Ht 160 cm; Wt 75.7 kg
[2023-07-10] MEDS ORDERED: albumin 25% 100mL bottle x 1 IV PRN (07:20)
[2023-07-10 07:30] VITALS: BP 106/69; PULSE 64; RESP 14; TEMP 98.8; O2SAT 98
[2023-07-10 08:16] VITALS: BP 116/75; PULSE 78; RESP 18; O2SAT 92
[2023-07-10 08:31] VITALS: BP 100/47; PULSE 87; RESP 16; O2SAT 99
[2023-07-10 08:46] VITALS: BP 111/70; PULSE 84; RESP 16; O2SAT 99
[2023-07-10 09:01] VITALS: BP 123/62; PULSE 83; RESP 16; O2SAT 99
== END 2023-07-10 09:14 | disposition home or self-care (01) ==
LOC: SSTAY O 06:54
PROVIDERS: ATTEND Radiology Diagnostic Radiology
DX: K70.31 Alcoholic cirrhosis of liver with ascites (principal); I10 Essential (primary) hypertension; E78.5 Hyperlipidemia, unspecified; E11.9 Type 2 diabetes mellitus without complications; F10.21 Alcohol dependence, in remission; Z87.891 Personal history of nicotine dependence; Z86.14 Personal history of Methicillin resistant Staphylococcus aureus infection; Z72.89 Other problems related to lifestyle; Z79.899 Other long term (current) drug therapy; Z98.890 Other specified postprocedural states
CPT/HCPCS: 49083; C1729; P9047; A6258

== ENCOUNTER 2023-07-15 07:09 | Day surgery (SDC) | payer MEDICAID ==
[~2023-07-15] VITALS: Ht 160 cm; Wt 74.6 kg
[2023-07-15 07:20] VITALS: BP 139/74; PULSE 99; RESP 14; TEMP 98.5; O2SAT 100
[2023-07-15] MEDS ORDERED: normal saline 1000ml 1,000 ML IV PRN (07:45)
[2023-07-15] MEDS ORDERED: albumin 25% 100mL bottle x 1 IV PRN (07:45)
[2023-07-15 08:32] VITALS: BP 120/77; PULSE 99; RESP 14; O2SAT 100
[2023-07-15 08:47] VITALS: BP 139/111; PULSE 88; RESP 12; O2SAT 100
[2023-07-15 09:02] VITALS: BP 113/84; PULSE 89; RESP 12; O2SAT 100; O2SAT 97
[2023-07-15 09:17] VITALS: BP 122/84; PULSE 90; RESP 12; O2SAT 97
== END 2023-07-15 09:22 | disposition home or self-care (01) ==
LOC: SSTAY O 07:09
PROVIDERS: ATTEND Radiology Diagnostic Radiology
DX: K70.31 Alcoholic cirrhosis of liver with ascites (principal); I10 Essential (primary) hypertension; E11.9 Type 2 diabetes mellitus without complications; E78.5 Hyperlipidemia, unspecified; F10.21 Alcohol dependence, in remission; Z87.891 Personal history of nicotine dependence; Z86.14 Personal history of Methicillin resistant Staphylococcus aureus infection; Z72.89 Other problems related to lifestyle; Z98.890 Other specified postprocedural states; Z88.1 Allergy status to other antibiotic agents; Z79.899 Other long term (current) drug therapy
CPT/HCPCS: 49083; C1729; P9047; A6258

== ENCOUNTER 2023-07-22 07:16 | Day surgery (SDC) | payer MEDICAID ==
[~2023-07-22] VITALS: Ht 160 cm; Wt 77.4 kg
[2023-07-22] VITALS (7 sets, daily range): BP systolic 124–133; BP diastolic 58–87; PULSE 87–108; RESP 12–14; TEMP 98.3; O2SAT 96–99
[2023-07-22] MEDS: albumin 25% 100mL bottle x 1 IV PRN ×2 (08:12→09:55)
== END 2023-07-22 10:26 | disposition home or self-care (01) ==
LOC: SSTAY O 07:16
PROVIDERS: ATTEND Radiology Vascular & Interventional Radiology
DX: K70.31 Alcoholic cirrhosis of liver with ascites (principal); I10 Essential (primary) hypertension; E78.5 Hyperlipidemia, unspecified; E11.9 Type 2 diabetes mellitus without complications; F10.21 Alcohol dependence, in remission; Z87.891 Personal history of nicotine dependence; Z86.14 Personal history of Methicillin resistant Staphylococcus aureus infection; Z98.890 Other specified postprocedural states; Z79.899 Other long term (current) drug therapy
CPT/HCPCS: 49083; C1729; P9047; A6258; A6449

== ENCOUNTER 2023-07-29 07:24 | Day surgery (SDC) | payer MEDICAID ==
[2023-07-29] VITALS (7 sets, daily range): BP systolic 106–125; BP diastolic 60–73; PULSE 82–99; RESP 12; TEMP 98.4; O2SAT 98–100
[~2023-07-29] VITALS: Ht 160 cm; Wt 76.2 kg
[2023-07-29] MEDS ORDERED: normal saline 1000ml 1,000 ML IV PRN (07:40)
[2023-07-29] MEDS: albumin 25% 100mL bottle x 1 IV PRN ×2 (08:26→09:34)
== END 2023-07-29 10:25 | disposition home or self-care (01) ==
LOC: SSTAY O 07:24
PROVIDERS: ATTEND Radiology Diagnostic Radiology
DX: K70.31 Alcoholic cirrhosis of liver with ascites (principal); I10 Essential (primary) hypertension; E78.5 Hyperlipidemia, unspecified; E11.9 Type 2 diabetes mellitus without complications; Z86.14 Personal history of Methicillin resistant Staphylococcus aureus infection; F10.21 Alcohol dependence, in remission; Z87.891 Personal history of nicotine dependence; Z88.1 Allergy status to other antibiotic agents; Z79.899 Other long term (current) drug therapy
CPT/HCPCS: 49083; C1729; P9047; A6258; A6449

== ENCOUNTER 2023-08-05 07:13 | Day surgery (SDC) | payer MEDICAID ==
[~2023-08-05] VITALS: Ht 160 cm; Wt 73.9 kg
[2023-08-05 07:27] VITALS: BP 122/73; PULSE 94; RESP 12; TEMP 98.9; O2SAT 96
[2023-08-05] MEDS ORDERED: FURO-150 PO (07:27)
[2023-08-05] MEDS ORDERED: albumin 25% 100mL bottle x 1 IV PRN (07:30)
[2023-08-05] MEDS ORDERED: normal saline 1000ml 1,000 ML IV PRN (07:30)
[2023-08-05 08:45] VITALS: BP 147/77; PULSE 89; RESP 12; O2SAT 97
[2023-08-05 09:00] VITALS: BP 137/76; PULSE 86; RESP 12; O2SAT 99
[2023-08-05 09:15] VITALS: BP 116/65; PULSE 75; RESP 12; O2SAT 97
[2023-08-05 09:30] VITALS: BP 138/84; PULSE 88; RESP 12; O2SAT 100
[2023-08-05 09:45] VITALS: BP 135/76; PULSE 74; RESP 12; O2SAT 97
== END 2023-08-05 10:00 | disposition home or self-care (01) ==
LOC: SSTAY O 07:13
PROVIDERS: ATTEND Radiology Diagnostic Radiology
DX: K70.31 Alcoholic cirrhosis of liver with ascites (principal); I10 Essential (primary) hypertension; E78.5 Hyperlipidemia, unspecified; E11.9 Type 2 diabetes mellitus without complications; F10.21 Alcohol dependence, in remission; Z86.14 Personal history of Methicillin resistant Staphylococcus aureus infection; Z87.891 Personal history of nicotine dependence; Z79.899 Other long term (current) drug therapy; Z98.890 Other specified postprocedural states
CPT/HCPCS: 49083; C1729; P9047; A6258; A6449

== ENCOUNTER 2023-08-12 07:50 | Day surgery (SDC) | payer MEDICAID ==
[~2023-08-12] VITALS: Ht 160 cm; Wt 73.2 kg
[2023-08-12] VITALS (7 sets, daily range): BP systolic 105–127; BP diastolic 58–94; PULSE 81–97; RESP 12; TEMP 98.3; O2SAT 97–99
[~2023-08-12 07:50] MED LIST changes: +FURO-150 PO; -HYDR12.55 PO
[2023-08-12] MEDS ORDERED: albumin 25% 100mL bottle x 1 IV PRN (08:10)
[2023-08-12] MEDS ORDERED: normal saline 1000ml 1,000 ML IV PRN (08:10)
== END 2023-08-12 11:00 | disposition home or self-care (01) ==
LOC: SSTAY O 07:50
PROVIDERS: ATTEND Radiology Vascular & Interventional Radiology
DX: K70.31 Alcoholic cirrhosis of liver with ascites (principal); I10 Essential (primary) hypertension; E78.5 Hyperlipidemia, unspecified; E11.9 Type 2 diabetes mellitus without complications; Z86.14 Personal history of Methicillin resistant Staphylococcus aureus infection; F10.21 Alcohol dependence, in remission; Z87.891 Personal history of nicotine dependence; Z98.890 Other specified postprocedural states; Z79.899 Other long term (current) drug therapy; Z88.1 Allergy status to other antibiotic agents
CPT/HCPCS: 49083; C1729; P9047; A6258; A6449

== ENCOUNTER 2023-08-19 07:14 | Day surgery (SDC) | payer MEDICAID ==
[~2023-08-19] VITALS: Ht 160 cm; Wt 71.5 kg
[2023-08-19 07:30] VITALS: RESP 16; O2SAT 99
[2023-08-19 07:50] VITALS: BP 106/67; PULSE 96; RESP 15; TEMP 98.1; O2SAT 96
[2023-08-19 08:58] VITALS: BP_SYST 126; BP_SYST 128; BP_DIAS 73; BP_DIAS 76; PULSE 15; PULSE 90; RESP 15; O2SAT 96
[2023-08-19] MEDS: albumin 25% 100mL bottle x 1 IV PRN ×2 (09:02→09:47)
[2023-08-19 09:15] VITALS: BP 119/80; PULSE 85; RESP 14; O2SAT 97
[2023-08-19 09:30] VITALS: BP 134/73; PULSE 84; RESP 14; O2SAT 97
[2023-08-19 09:35] VITALS: BP 136/77; PULSE 80; RESP 15; O2SAT 97
== END 2023-08-19 10:30 | disposition home or self-care (01) ==
LOC: SSTAY O 07:14
PROVIDERS: ATTEND Radiology Diagnostic Radiology
DX: K70.31 Alcoholic cirrhosis of liver with ascites (principal); I10 Essential (primary) hypertension; E78.5 Hyperlipidemia, unspecified; E11.9 Type 2 diabetes mellitus without complications; Z98.890 Other specified postprocedural states; F10.21 Alcohol dependence, in remission; Z87.891 Personal history of nicotine dependence; Z86.14 Personal history of Methicillin resistant Staphylococcus aureus infection; Z79.899 Other long term (current) drug therapy
CPT/HCPCS: 49083; C1729; P9047; A6258; A6449

== ENCOUNTER 2023-08-26 07:11 | Day surgery (SDC) | payer MEDICAID ==
[2023-08-26] VITALS (9 sets, daily range): BP systolic 104–131; BP diastolic 52–78; PULSE 85–112; RESP 16–18; TEMP 99.3; O2SAT 94–98
[~2023-08-26] VITALS: Ht 160 cm; Wt 73.2 kg
[2023-08-26] MEDS ORDERED: normal saline 1000ml 1,000 ML IV PRN (07:25)
[2023-08-26] MEDS: albumin 25% 100mL bottle x 1 IV PRN ×2 (07:38→09:11)
== END 2023-08-26 09:25 | disposition home or self-care (01) ==
LOC: SSTAY O 07:11
PROVIDERS: ATTEND Radiology Vascular & Interventional Radiology
DX: K70.31 Alcoholic cirrhosis of liver with ascites (principal); I10 Essential (primary) hypertension; E78.5 Hyperlipidemia, unspecified; E11.9 Type 2 diabetes mellitus without complications; F10.21 Alcohol dependence, in remission; Z87.891 Personal history of nicotine dependence; Z86.14 Personal history of Methicillin resistant Staphylococcus aureus infection; Z79.899 Other long term (current) drug therapy; Z98.890 Other specified postprocedural states; Z88.1 Allergy status to other antibiotic agents
CPT/HCPCS: 49083; C1729; P9047; A6258; A6449

== ENCOUNTER 2023-09-02 07:26 | Day surgery (SDC) | payer MEDICAID ==
[2023-09-02] VITALS (7 sets, daily range): BP systolic 96–149; BP diastolic 52–94; PULSE 69–100; RESP 12; TEMP 98.8; O2SAT 98–100
[~2023-09-02] VITALS: Ht 160 cm; Wt 72.0 kg
[~2023-09-02 07:26] MED LIST changes: -ASCO-157 PO; -MILK1CAP4 PO; -OMEG-5 PO; -VITA0.4T18 PO; -VITA400T10 PO; -[UNRECOGNIZED DRUG - CODE] PO
[2023-09-02] MEDS ORDERED: albumin 25% 100mL bottle x 1 IV PRN (08:00)
[2023-09-09] MEDS ORDERED: SPIR100T5 PO (07:34)
[2023-09-09] MEDS ORDERED: FURO-150 PO (07:34)
== END 2023-09-02 09:45 | disposition home or self-care (01) ==
LOC: SSTAY O 07:26
PROVIDERS: ATTEND Radiology Diagnostic Radiology
DX: K70.31 Alcoholic cirrhosis of liver with ascites (principal); I10 Essential (primary) hypertension; E78.5 Hyperlipidemia, unspecified; E11.9 Type 2 diabetes mellitus without complications; F10.21 Alcohol dependence, in remission; Z87.891 Personal history of nicotine dependence; Z98.890 Other specified postprocedural states; Z86.14 Personal history of Methicillin resistant Staphylococcus aureus infection; Z79.899 Other long term (current) drug therapy
CPT/HCPCS: 49083; C1729; P9047; A6258; A6449

== ENCOUNTER → 2023-09-09 | Day surgery (SDC) | payer MEDICAID ==
[~2023-09-09] VITALS: Ht 160 cm; Wt 71.7 kg
[~2023-09-09] MED LIST changes: +SPIR100T5 PO; +albumin 25% 100mL bottle x 1 IV PRN; +normal saline 1000ml 1,000 ML IV PRN
[2023-09-09 07:40] VITALS: BP 107/74; PULSE 91; RESP 14; TEMP 99.1; O2SAT 99
[2023-09-09 08:26] VITALS: BP 98/56; PULSE 95; RESP 14; O2SAT 99
[2023-09-09 08:38] VITALS: BP 85/33; PULSE 87; RESP 14; O2SAT 97
[2023-09-09 08:53] VITALS: BP 93/59; PULSE 81; RESP 14; O2SAT 98
[2023-09-09 09:08] VITALS: BP 101/58; PULSE 89; RESP 14; O2SAT 99
== END | disposition home or self-care (01) ==
LOC: SSTAY O 07:13
PROVIDERS: ATTEND Radiology Vascular & Interventional Radiology
DX: K70.31 Alcoholic cirrhosis of liver with ascites (principal); I10 Essential (primary) hypertension; E78.5 Hyperlipidemia, unspecified; E11.9 Type 2 diabetes mellitus without complications; F10.21 Alcohol dependence, in remission; Z86.14 Personal history of Methicillin resistant Staphylococcus aureus infection; Z87.891 Personal history of nicotine dependence; Z79.899 Other long term (current) drug therapy
CPT/HCPCS: 49083; C1729; P9047; A6258; A6449

== ENCOUNTER 2023-09-15 08:42 | Day surgery (SDC) | payer MEDICAID ==
[~2023-09-15] VITALS: Ht 160 cm; Wt 69.4 kg
[2023-09-15] VITALS (10 sets, daily range): BP systolic 99–123; BP diastolic 42–84; PULSE 88–110; RESP 14–16; TEMP 97.7; O2SAT 95–98
[~2023-09-15 08:42] MED LIST changes: -SPIR25TA5 PO; -albumin 25% 100mL bottle x 1 IV PRN; -normal saline 1000ml 1,000 ML IV PRN
[2023-09-15] MEDS ORDERED: albumin 25% 100mL bottle x 1 IV PRN (09:15)
== END 2023-09-15 11:45 | disposition home or self-care (01) ==
LOC: SSTAY O 08:42
PROVIDERS: ATTEND Radiology Diagnostic Radiology
DX: K70.31 Alcoholic cirrhosis of liver with ascites (principal); F10.21 Alcohol dependence, in remission; I10 Essential (primary) hypertension; E11.9 Type 2 diabetes mellitus without complications; E78.5 Hyperlipidemia, unspecified; Z87.891 Personal history of nicotine dependence; Z86.14 Personal history of Methicillin resistant Staphylococcus aureus infection; Z98.890 Other specified postprocedural states; Z79.899 Other long term (current) drug therapy
CPT/HCPCS: 49083; C1729; A6258; A6449

== ENCOUNTER 2023-09-29 07:18 | Day surgery (SDC) | payer MEDICAID ==
[~2023-09-29] VITALS: Ht 160 cm; Wt 72.8 kg
[2023-09-29] VITALS (8 sets, daily range): BP systolic 101–136; BP diastolic 47–80; PULSE 82–103; RESP 14–16; TEMP 98.4; O2SAT 95–99
[2023-09-29] MEDS: albumin 25% 100mL bottle x 1 IV PRN (08:15)
== END 2023-09-29 10:00 | disposition home or self-care (01) ==
LOC: SSTAY O 07:18
PROVIDERS: ATTEND Radiology Diagnostic Radiology
DX: K70.31 Alcoholic cirrhosis of liver with ascites (principal); I10 Essential (primary) hypertension; E78.5 Hyperlipidemia, unspecified; E11.9 Type 2 diabetes mellitus without complications; Z98.890 Other specified postprocedural states; F10.91 Alcohol use, unspecified, in remission; Z86.14 Personal history of Methicillin resistant Staphylococcus aureus infection; Z87.891 Personal history of nicotine dependence; Z88.1 Allergy status to other antibiotic agents; Z79.899 Other long term (current) drug therapy
CPT/HCPCS: 49083; C1729; P9047; A6258

== ENCOUNTER 2023-10-10 07:44 | Day surgery (SDC) | payer MEDICAID ==
[~2023-10-10] VITALS: Ht 160 cm; Wt 70.9 kg
[2023-10-10] VITALS (10 sets, daily range): BP systolic 99–140; BP diastolic 55–99; PULSE 86–107; RESP 16–18; TEMP 101.3; O2SAT 95–99
[2023-10-10] MEDS ORDERED: KEN0.1O TP (08:19)
[2023-10-10] MEDS: acetaminophen 325mg tablet PO PRN (09:25)
[2023-10-10] MEDS: albumin 25% 100mL bottle x 1 IV PRN (09:26)
== END 2023-10-10 11:00 | disposition home or self-care (01) ==
LOC: SSTAY O 07:44
PROVIDERS: ATTEND Radiology Vascular & Interventional Radiology
DX: R18.8 Other ascites (principal); R14.0 Abdominal distension (gaseous); I10 Essential (primary) hypertension; E11.9 Type 2 diabetes mellitus without complications; E78.5 Hyperlipidemia, unspecified
CPT/HCPCS: 49083; C1729; P9047; A6258

== ENCOUNTER 2023-10-20 06:37 | Day surgery (SDC) | payer MEDICAID ==
[2023-10-20] VITALS (11 sets, daily range): BP systolic 87–121; BP diastolic 51–90; PULSE 78–103; RESP 12–16; TEMP 98.2; O2SAT 94–100
[~2023-10-20] VITALS: Ht 160 cm; Wt 72.4 kg
[~2023-10-20 06:37] MED LIST changes: -BUDE10.2 INH; +KEN0.1O TP
[2023-10-20] MEDS: albumin 25% 100mL bottle x 1 IV PRN (08:40)
== END 2023-10-20 10:30 | disposition home or self-care (01) ==
LOC: SSTAY O 06:37
PROVIDERS: ATTEND Radiology Diagnostic Radiology
DX: R18.8 Other ascites (principal); R14.0 Abdominal distension (gaseous); I10 Essential (primary) hypertension; E11.9 Type 2 diabetes mellitus without complications; E78.5 Hyperlipidemia, unspecified; Z98.890 Other specified postprocedural states
CPT/HCPCS: 49083; C1729; P9047; A6258

== ENCOUNTER 2023-11-12 06:20 | Day surgery (SDC) | payer MEDICAID ==
[~2023-11-12] VITALS: Ht 160 cm; Wt 68.7 kg
[2023-11-12] MEDS ORDERED: normal saline 1000ml 1,000 ML IV PRN (06:50)
[2023-11-12 07:20] VITALS: BP 110/58; PULSE 70; RESP 16; TEMP 98.4; O2SAT 95
[2023-11-12] MEDS ORDERED: VITA800012 PO (07:31)
[2023-11-12] MEDS ORDERED: CHOL200080 PO (07:31)
[2023-11-12] MEDS: albumin 25% 100mL bottle x 1 IV PRN (09:00)
[2023-11-12 09:03] VITALS: BP 126/75; PULSE 79; RESP 16; O2SAT 97
[2023-11-12 09:18] VITALS: BP 145/75; PULSE 79; RESP 16; O2SAT 97
[2023-11-12 09:31] VITALS: BP 142/52; PULSE 76; RESP 16; O2SAT 97
[2023-11-12 09:48] VITALS: BP 104/66; PULSE 78; RESP 16; O2SAT 97
== END 2023-11-12 10:00 | disposition home or self-care (01) ==
LOC: SSTAY O 06:20
PROVIDERS: ATTEND Internal Medicine Critical Care Medicine
DX: K70.31 Alcoholic cirrhosis of liver with ascites (principal); Z87.891 Personal history of nicotine dependence; F10.91 Alcohol use, unspecified, in remission; Z88.1 Allergy status to other antibiotic agents; Z79.899 Other long term (current) drug therapy
CPT/HCPCS: 49083; C1729; P9047; 96360; A6258; A6449

== ENCOUNTER 2024-03-10 07:02 | Day surgery (SDC) | payer MEDICAID ==
[2024-03-10] VITALS (11 sets, daily range): BP systolic 102–158; BP diastolic 53–81; PULSE 84–98; RESP 16–18; TEMP 98.6; O2SAT 97–100
[~2024-03-10] VITALS: Ht 160 cm; Wt 72.7 kg
[~2024-03-10 07:02] MED LIST changes: -FLUT16SP26; -KEN0.1O TP; -SPIR100T5 PO; +SPIR25TA5 PO
[2024-03-10] MEDS ORDERED: ERGO125013 PO (07:30)
[2024-03-10] MEDS ORDERED: ASPI-611 PO (07:30)
[2024-03-10] MEDS ORDERED: normal saline 1000ml 1,000 ML IV PRN (07:30)
[2024-03-10] MEDS ORDERED: VITA800012 PO (07:30)
[2024-03-10] MEDS: albumin 25% 100mL bottle x 1 IV PRN (10:22)
== END 2024-03-10 12:00 | disposition home or self-care (01) ==
LOC: SSTAY O 07:02
PROVIDERS: ATTEND Internal Medicine Critical Care Medicine
DX: K70.31 Alcoholic cirrhosis of liver with ascites (principal); Z88.1 Allergy status to other antibiotic agents
CPT/HCPCS: 49083; C1729; J3490; P9047; A6258; A6449